=== PATIENT | female | born 1945 | race Caucasian/White ===

== ENCOUNTER 2017-01-17 06:32 | Inpatient (IN) | payer OTHER ==
[~2017-01-17] VITALS: Ht 152.4 cm; Wt 84.3 kg
[~2017-01-17 06:32] MED LIST: ASPIRIN81 M2 PO; Coumadin dosing per PO; FERROUS SULFAT325 MG PO; Feosol PO; NORVASC5 MG PO; Norvasc PO; Nucynta PO; PREMARIN VAGI42.5 GM VG; Senokot S,Pericolace PO; Tylenol Regular Stre PO; Ziac 5/6.25 PO
[2017-01-17] MEDS ORDERED: TUMS500 MG PO (08:05)
[2017-01-17 08:07] VITALS: BP 138/71
[2017-01-17 16:34] VITALS: BP 120/58
[2017-01-17 20:02] VITALS: BP 114/61
[2017-01-17 23:54] VITALS: BP 125/76
[2017-01-18 04:40] VITALS: BP 131/68
[2017-01-18 06:17] LABS: HEMATOCRIT 37.8 % (36.0-46.0); MCV 88.9 FL (83-99)
[2017-01-18 07:56] VITALS: BP 117/61
[2017-01-18 11:54] VITALS: BP 11/56
[2017-01-18 16:10] VITALS: BP 120/59
[2017-01-18 19:30] VITALS: BP 132/61
[2017-01-18 23:50] VITALS: BP 123/59
[2017-01-19 04:04] VITALS: BP 108/70
[2017-01-19 05:54] LABS: HEMATOCRIT 34.8 % (36.0-46.0); MCV 89.7 FL (83-99)
[2017-01-19 07:26] VITALS: BP 120/68
[2017-01-19] MEDS ORDERED: TYLENOL REGULA325 MG PO (09:04)
[2017-01-19] MEDS ORDERED: XARELTO10 MG PO (09:07)
[2017-01-19] MEDS ORDERED: NUCYNTA ER50 MG PO (09:07)
[2017-01-19] MEDS ORDERED: CELECOXIB200 MG PO (09:07)
[2017-01-19] MEDS ORDERED: HYDROCODON-ACE1 EAC7 PO (09:07)
[2017-01-19] MEDS ORDERED: SENNA PLUS TAB1 EACH PO (09:07)
[2017-01-19] MEDS ORDERED: LIDOCAINE700 MG TD (09:07)
[2017-01-19 11:45] VITALS: BP 124/64
[2017-01-19 16:03] VITALS: BP 108/57
[2017-01-20 07:15] VITALS: BP 110/60
== END 2017-01-20 10:41 | disposition home or self-care (01) | DRG 470 ==
LOC: 2SOUTH 06:32 → 3EAST 06:32 → 2SOUTH 10:41 → 3EAST 15:42 → 2SOUTH 15:51 → 3EAST 01-20 10:41
PROVIDERS: Orthopaedic Surgery
PROC: 0SRC0J9 Replacement of Right Knee Joint with Synthetic Substitute, Cemented, Open Approach (ICD-10-PCS; principal; 2017-01-17)
DX: M17.11 Unilateral primary osteoarthritis, right knee (principal); Z96.652 Presence of left artificial knee joint; I10 Essential (primary) hypertension; E78.5 Hyperlipidemia, unspecified; E66.9 Obesity, unspecified; Z68.36 Body mass index [BMI] 36.0-36.9, adult; Z88.0 Allergy status to penicillin; D64.9 Anemia, unspecified; Z88.5 Allergy status to narcotic agent; Z87.891 Personal history of nicotine dependence
CPT/HCPCS: 85014; 85018; C1713; J0131; J0690; J1170; J1885; J2250; J2405; J2795; J3010; J7050; L1820